=== PATIENT | male | born 1945 | race American Indian/Alaskan Native ===

== ENCOUNTER 2018-05-30 08:58 | Emergency (ER) | payer MEDICARE ==
[2018-05-30] MEDS ORDERED: LEVAQUIN 500MG/100ML 500 MG/100 ML BAG IV ONE (09:47)
--- NOTE | 2018-05-30 09:47 | Emergency Department Report ---
ED General Adult HPI - General Chief complaint: Upper Respiratory Infection Stated complaint: MEDICAL CLEARANCE Time Seen by Provider: 05/30/18 09:46 Source: patient Mode of arrival: Ambulatory Limitations: No Limitations - History of Present Illness Initial comments: She is a 69-year-old male that presents emergency room with complaints of dyspnea on exertion, cough. Patient states he saw his primary care, Dr. Rodriguez and had a chest x-ray and he was sent here for pneumonia treatment and admission. Patient states his shortness of breath and cough are worsening. Patient is also complaining of chills. Patient denies fever. Patient denies chest pain. Patient denies abdominal pain. Patient states was respiratory with rest and worse with exertion. -: Sudden Consistency: constant Improves with: rest Worsens with: movement Associated Symptoms: cough, shortness of breath. denies: confusion, chest pain, diaphoresis, headaches, loss of appetite, malaise, nausea/vomiting, rash, seizure, syncope, weakness Treatments Prior to Arrival: none - Related Data Home Medications Medication Instructions Recorded Confirmed Last Taken Alfuzosin HCl [Uroxatral] 10 mg PO QDAY 07/02/14 07/09/14 07/08/14 Aspirin EC [Aspirin Enteric Coated 81 mg PO QDAY 07/02/14 07/09/14 07/07/14 TAB] Finasteride [Proscar] 5 mg PO QDAY 07/02/14 07/09/14 07/07/14 Multivit-Min/Folic/Vit K/Lycop [Eq 1 each PO QDAY 07/02/14 07/09/14 07/07/14 One Daily Men's Tablet] Spironolactone [Aldactone] 25 mg PO QDAY 07/02/14 07/09/14 07/07/14 Tolterodine (Nf) [Detrol LA] 4 mg PO QDAY 07/02/14 07/09/14 07/07/14 Zolpidem [Ambien] 10 mg PO QHS PRN 07/02/14 07/09/14 07/07/14 Previous Rx's Medication Instructions Recorded Last Taken Type methOCARBAMOL [Robaxin TAB] 500 mg PO BID PRN #20 tab 07/04/15 Unknown Rx Doxycycline Hyclate [Doxycycline 100 mg PO Q12HR 10 Days #20 tab 05/30/18 Unknown Rx Hyclate TAB] methylPREDNISolone [Medrol] 4 mg PO DAILY #1 tab.ds.pk 05/30/18 Unknown Rx Allergies Allergy/AdvReac Type Severity Reaction Status Date / Time Penicillins Allergy Rash, Verified 05/30/18 09:00 Itching Pork/Porcine Containing Allergy Vomiting Verified 05/30/18 09:00 Products ED Review of Systems ROS: Stated complaint: MEDICAL CLEARANCE Other details as noted in HPI Constitutional: chills. denies: fever Eyes: denies: eye pain, eye discharge, vision change ENT: denies: ear pain, throat pain Respiratory: cough, SOB with exertion. denies: wheezing Cardiovascular: dyspnea on exertion. denies: chest pain, palpitations Endocrine: no symptoms reported Gastrointestinal: denies: abdominal pain, nausea, diarrhea Genitourinary: denies: urgency, dysuria Musculoskeletal: denies: back pain, joint swelling, arthralgia Skin: denies: rash, lesions Neurological: denies: headache, weakness, paresthesias Psychiatric: denies: anxiety, depression Hematological/Lymphatic: denies: easy bleeding, easy bruising ED Past Medical Hx - Past Medical History Previous Medical History?: Yes Hx Hypertension: Yes Hx CVA: Yes Additional medical history: prostatitis - Surgical History Past Surgical History?: No - Family History Family history: no significant - Social History Smoking Status: Current Every Day Smoker Substance Use Type: None - Medications Home Medications: Home Medications Medication Instructions Recorded Confirmed Last Taken Type Alfuzosin HCl [Uroxatral] 10 mg PO QDAY 07/02/14 07/09/14 07/08/14 History Aspirin EC [Aspirin Enteric Coated 81 mg PO QDAY 07/02/14 07/09/14 07/07/14 History TAB] Finasteride [Proscar] 5 mg PO QDAY 07/02/14 07/09/14 07/07/14 History Multivit-Min/Folic/Vit K/Lycop [Eq 1 each PO QDAY 07/02/14 07/09/14 07/07/14 History One Daily Men's Tablet] Spironolactone [Aldactone] 25 mg PO QDAY 07/02/14 07/09/14 07/07/14 History Tolterodine (Nf) [Detrol LA] 4 mg PO QDAY 07/02/14 07/09/14 07/07/14 History Zolpidem [Ambien] 10 mg PO QHS PRN 07/02/14 07/09/14 07/07/14 History methOCARBAMOL [Robaxin TAB] 500 mg PO BID PRN #20 tab 07/04/15 Unknown Rx Doxycycline Hyclate [Doxycycline 100 mg PO Q12HR 10 Days #20 tab 05/30/18 Unknown Rx Hyclate TAB] methylPREDNISolone [Medrol] 4 mg PO DAILY #1 tab.ds.pk 05/30/18 Unknown Rx ED Physical Exam - General Limitations: No Limitations General appearance: alert, in no apparent distress - Head Head exam: Present: atraumatic, normocephalic - Eye Eye exam: Present: normal appearance - ENT ENT exam: Present: mucous membranes moist - Neck Neck exam: Present: normal inspection - Respiratory Respiratory exam: Present: normal lung sounds bilaterally. Absent: respiratory distress - Cardiovascular Cardiovascular Exam: Present: regular rate, normal rhythm. Absent: systolic murmur, diastolic murmur, rubs, gallop - GI/Abdominal GI/Abdominal exam: Present: soft, normal bowel sounds - Rectal Rectal exam: Present: deferred - Extremities Exam Extremities exam: Present: normal inspection - Back Exam Back exam: Present: normal inspection - Neurological Exam Neurological exam: Present: alert, oriented X3 - Psychiatric Psychiatric exam: Present: normal affect, normal mood - Skin Skin exam: Present: warm, dry, intact, normal color. Absent: rash ED Course Vital Signs 05/30/18 05/30/18 09:06 12:00 Temperature 97.5 F L Pulse Rate 87 77 Respiratory 18 22 Rate Blood Pressure 127/87 Blood Pressure 128/69 [Left] O2 Sat by Pulse 98 98 Oximetry - Reevaluation(s) Reevaluation #1: Discussed results with patient. Patient's chest x-ray does not show pneumonia but shows peribronchial cuffing consistent with bronchitis. Patient's labs are unremarkable. Patient is stable for discharge. Patient agrees with discharge. Patient agrees with plan of care. Patient ambulatory in ER. 05/30/18 12:05 ED Medical Decision Making - Lab Data Result diagrams: 05/30/18 07:40 05/30/18 07:40 - EKG Data -: EKG Interpreted by Me EKG shows normal: sinus rhythm, axis, intervals, QRS complexes, ST-T waves Rate: normal - Radiology Data Radiology results: report reviewed, image reviewed interpreted by me: Chest x-ray negative for pneumonia.. periBronchial cuffing noted CHEST 2 VIEWS INDICATION: Upper respiratory infection. COMPARISON: None similar. FINDINGS: PA and lateral chest radiographs demonstrate normal cardiomediastinal silhouette. Slight aortic knob calcifications. Mild horizontal left lung base scarring or atelectasis. Lung markings slightly prominent centrally and towards the bases, possibly in part chronic. Slight peribronchial thickening not excluded. No pleural effusions or CHF. Slight mid to lower thoracic spine degenerative spurring. CONCLUSION: Slight peribronchial thickening with few other incidental findings, as above. Please also correlate clinically and with prior chest imaging, if available. - Medical Decision Making Patient is a 73-year-old male presents emergency room with cough, chills, shortness of breath. Patient vital signs stable. Patient resting comfortably in no acute distress. Patient stable for discharge. Patient's chest x-ray done which shows mild bronchitis and no pneumonia. Labs are unremarkable. Patient will be discharged home. Patient will be given outpatient antibiotics and steroid therapy. Patient given discharge instructions. Patient given follow-up instructions. Patient given return to ER instructions. Patient voiced understanding of all instructions. Patient's caregiver at bedside - Differential Diagnosis cough. Bronchitis. Pneumonia. URI Critical care attestation.: If time is entered above; I have spent that time in minutes in the direct care of this critically ill patient, excluding procedure time. ED Disposition Clinical Impression: SOB (shortness of breath), Bronchitis, Cough, Chills Disposition: DC-01 TO HOME OR SELFCARE Is pt being admited?: No Does the pt Need Aspirin: No Condition: Stable Instructions: Acute Bronchitis (ED) Additional Instructions: Patient to follow-up with primary care within 2-3 days. Patient to return to ER if condition worsens. Patient to take prescriptions as directed. Patient to increase water. Patient to rest. Prescriptions: Doxycycline Hyclate [Doxycycline Hyclate TAB] 100 mg PO Q12HR 10 Days #20 tab methylPREDNISolone [Medrol] 4 mg PO DAILY #1 tab.ds.pk Referrals: [facility] [Other] - 2-3 Days Time of Disposition: 12:18
[2018-05-30 09:56] LABS: Basophils # (Auto) 0.1 K/mm3 (0.0-0.1); Basophils % (Auto) 0.9 % (0.0-1.8); Eosinophils # (Auto) 0.1 K/mm3 (0.0-0.4); Eosinophils % (Auto) 2.2 % (0.0-4.3); Hemoglobin 12.1 gm/dl (11.8-15.2); Lymphocytes # (Auto) 2.4 K/mm3 (1.2-5.4); Lymphocytes % (Auto) 36.8 % (13.4-35.0); Mean Corpuscular HGB Conc 33 % (32-34); Mean Corpuscular Volume 71 fl (84-94); Monocytes # (Auto) 0.8 K/mm3 (0.0-0.8); Monocytes % (Auto) 11.6 % (0.0-7.3); Platelet Count 166 K/mm3 (140-440); Red Blood Count 5.24 M/mm3 (3.65-5.03); Red Cell Distribution Width 16.1 % (13.2-15.2)
[2018-05-30 10:17] LABS: Alanine Aminotransferase 23 units/L (7-56); Albumin 3.4 g/dL (3.9-5); BUN/Creatinine Ratio 13; Blood Urea Nitrogen 10 mg/dL (9-20); Calcium 8.9 mg/dL (8.4-10.2); Hemolysis Index 1
[2018-05-30] MEDS ORDERED: SOLU-Medrol IV ONE (11:17)
[2018-05-30 11:59] LABS: Creatine Kinase MB 5.3 ng/mL (0.0-4.0)
[2018-05-30 12:45] VITALS: BP 128/69
== END 2018-05-30 12:55 | disposition home or self-care (01) ==
LOC: ED 08:58
DX: J40 Bronchitis, not specified as acute or chronic (principal); I10 Essential (primary) hypertension; F17.200 Nicotine dependence, unspecified, uncomplicated; Z86.73 Personal history of transient ischemic attack (TIA), and cerebral infarction without residual deficits; Z88.0 Allergy status to penicillin; Z91.018 Allergy to other foods
CPT/HCPCS: 36415; 71046; 80053; 82140; 82550; 82553; 84484; 85025; 87040; 93005; 93010; 96365; 96375; 99284; J1956; J2930